=== PATIENT | female | born 1955 | race Caucasian/White ===

== ENCOUNTER → 2021-03-30 | Outpatient (CLI) | payer MEDICARE, OTHER ==
--- NOTE | 2021-03-31 09:59 | RAD ---
XR FOOT_RIGHT 3 VIEWS 03/31/2021 Reason: 2ND AND 3RD DIGIT HAMMER TOE Comparison: None Technique: 3 views of the right foot Findings: There is no acute fracture or dislocation. Joint spaces are normal. Soft tissues are normal. The seco nd and third digits are flexed, related to given history of second and third digit hammertoe. Impression: No acute osseous abnormality. Electronically signed by: Jeremy King (03/31/2021 9:56 AM) [id number]
== END ==
LOC: RAD 11:11
PROVIDERS: ATTEND Podiatrist Foot & Ankle Surgery
DX: M20.41 Other hammer toe(s) (acquired), right foot (principal)
CPT/HCPCS: 73630